=== PATIENT | male | born 1950 ===

== ENCOUNTER 2017-03-12 05:18 | Inpatient (IN) | payer MEDICARE, MEDICAID ==
[2017-03-12] VITALS (15 sets, daily range): BP systolic 111–148; BP diastolic 67–90
[~2017-03-12] VITALS: Ht 172.7 cm; Wt 97.5 kg
[~2017-03-12 05:18] MED LIST: BENAZEPRIL HCL20 MG ORAL; PROTONIX20 MG ORAL
[2017-03-12] MEDS ORDERED: ceFAZolin 1gm/50ml Premix 50 ML IV ONE (07:00)
[2017-03-12] MEDS ORDERED: Surgicel 4in x 8in TOPIC ONE (07:09)
[2017-03-12] MEDS ORDERED: Bupivacaine 0.5% Inj 30 ml vial INJ ONE (07:09)
[2017-03-12] MEDS ORDERED: ProvayBlue 5mg/ml 10ml amp INJ ONE (07:15)
[2017-03-12] MEDS ORDERED: Glycopyrrolate 0.2mg/ml 1ml Vial ONE (07:30)
[2017-03-12] MEDS ORDERED: Lidocaine 1% MPF 10mg/ml 5ml ONE (07:30)
[2017-03-12] MEDS ORDERED: Zemuron 50mg/5ml Inj IV ONE (07:30)
[2017-03-12] MEDS ORDERED: Sterile Water Irrig 1000ml IRRIG ONE (07:30)
[2017-03-12] MEDS ORDERED: Midazolam 2mg/2ml Inj ONE ×2 (07:30)
[2017-03-12] MEDS ORDERED: Ketorolac 30mg Inj ONE (07:30)
[2017-03-12] MEDS ORDERED: NS Irrig 1000ml ONE (07:30)
[2017-03-12] MEDS ORDERED: Succinylcholine 20mg/ml 10ml vial ONE (07:30)
[2017-03-12] MEDS ORDERED: Propofol 200mg/20ml IV ONE (07:30)
[2017-03-12] MEDS ORDERED: fentaNYL 250mcg/5ml ONE (07:30)
[2017-03-12] MEDS ORDERED: Neostigmine 1mg/ml 10ml Inj ONE (07:30)
[2017-03-12] MEDS ORDERED: LR 1000ml ONE (07:30)
--- NOTE | 2017-03-12 07:50 | Pre-Procedure Note/Attestation ---
Pre-Procedure Note/Attestation Complete Prior to Procedure Procedure Narrative: Laparoscopic Radical Prostatectomy Indications for Procedure Pre-Operative Diagnosis: yes Attestation I attest that I discussed the nature of the procedure; its benefits; risks and complications; and alternatives (and the risks and benefits of such alternatives ), prior to the procedure, with the patient (or the patient's legal branch service representative). I attest that, if there was a reasonable possibility of needing a blood transfusion, the patient (or the patient's legal branch service representative) was given the [facility] standardized written summary, pursuant to the Yordan Kavitha Blood Safety Act ([place] Health and Safety Code # 1645, as amended). I attest that I re-evaluated the patient just prior to the surgery and that there has been no change in the patient's H&P, except as documented below: Danilo Owens MD Mar 12, 2017 07:50
[2017-03-12 08:14] LABS: BASOPHILS % (AUTO) 1.4 % (0.0-2.0); EOSINOPHILS % (AUTO) 1.3 % (0.0-3.0); LYMPHOCYTES % (AUTO) 31.4 % (20.0-45.0); MEAN CORPUSCULAR HEMOGLOBIN 24.4 PG (27.0-31.0); MEAN CORPUSCULAR HGB CONC 31.4 G/DL (32.0-36.0); MEAN CORPUSCULAR VOLUME 78 FL (80-99); MEAN PLATELET VOLUME 8.8 FL (6.5-10.1); MONOCYTES % (AUTO) 13.9 % (1.0-10.0); PLATELET COUNT 199 K/UL (150-450); RED BLOOD COUNT 4.78 M/UL (4.70-6.10); WHITE BLOOD COUNT 5.7 K/UL (4.8-10.8)
[2017-03-12] MEDS ORDERED: NS Irrig 1000ml IRRIG ONE (08:30)
[2017-03-12] MEDS ORDERED: LR 1000ml 1,000 ML IVLG SCH (08:54)
--- NOTE | 2017-03-12 08:54 | Anethesia Preoperative Eval ---
Anesthesia Pre-op PMH/ROS General Date of Evaluation: Mar 12, 2017 Time of Evaluation: 07:15 Anesthesiologist: Darwin ASA Score: ASA 2 Mallampati Score Class I : Soft palate, uvula, fauces, pillars visible Class II: Soft palate, uvula, fauces visible Class III: Soft palate, base of uvula visible Class IV: Only hard plate visible Mallampati Classification: Class II Surgeon: Graciela Diagnosis: Prostate CA Surgical Procedure: Laparoscopic prostateectomy Anesthesia History: none Social History: smoking - h/o, alcohol use - occasional Family History: no anesthesia problems Allergies: Coded Allergies: IRON (Verified Allergy, Severe, DIZZINESS, 03/11/17) Medications: see eMAR Past Medical History Cardiovascular: Reports: HTN - mild, Denies: CAD, FL, valve dz, arrhythmia, other Pulmonary: Denies: asthma, COPD, OTILIA, other Gastrointestinal/Genitourinary: Reports: GERD, Denies: CRI, ESRD, other Neurologic/Psychiatric: Denies: dementia, CVA, depression/anxiety, TIA, other Endocrine: Denies: DM, hypothyroidism, steroids, other HEENT: Denies: cataract (L), cataract (R), glaucoma, TABLE MOUNTAIN (L), TABLE MOUNTAIN (R), other Hematology/Immune: Reports: anemia, Denies: DVT, bleeding disorder, other Musculoskeletal/Integumentary: Denies: OA, RA, DJD, DDD, edema, other Other: other - overweight PMH Narrative: as above PSxH Narrative: hemorrhoidectomy Anesthesia Pre-op Phys. Exam Physician Exam Last Vital Signs Date Time Temp Pulse Resp B/P (MAP) Pulse Ox O2 Delivery O2 Flow Rate FiO2 03/12/17 06:55 97.3 82 18 148/78 96 Room Air Constitutional: NAD Neurologic: CN 2-12 intact Cardiovascular: RRR, no M/R/G Respiratory: CTA Gastrointestinal: S/NT/ND Airway Exam Mallampati Score: Class II MO: full Neck: flexible ROM: full Teeth: intact Dentures: no upper, no lower Anesthesia Pre-op A/P Labs Hematology Test 03/12/17 07:47 White Blood Count 5.7 K/UL (4.8-10.8) Red Blood Count 4.78 M/UL (4.70-6.10) Hemoglobin 11.7 G/DL (14.2-18.0) L Hematocrit 37.3 % (42.0-52.0) L Mean Corpuscular Volume 78 FL (80-99) L Mean Corpuscular Hemoglobin 24.4 PG (27.0-31.0) L Mean Corpuscular Hemoglobin Concent 31.4 G/DL (32.0-36.0) L Red Cell Distribution Width 18.0 % (11.6-14.8) H Platelet Count 199 K/UL (150-450) Mean Platelet Volume 8.8 FL (6.5-10.1) Neutrophils (%) (Auto) 52.0 % (45.0-75.0) Lymphocytes (%) (Auto) 31.4 % (20.0-45.0) Monocytes (%) (Auto) 13.9 % (1.0-10.0) H Eosinophils (%) (Auto) 1.3 % (0.0-3.0) Basophils (%) (Auto) 1.4 % (0.0-2.0) Studies Pre-op Studies: EKG - NSR Risk Assessment & Plan Assessment: ASA 2 Plan: GA with ETT Status Change Before Surgery: No Pre-Antibiotics Drug: Ancef 2 gr. Given Within 1 Hr of Incision: Yes Time Given: 08:12 LYN SANDOVAL M.D. Mar 12, 2017 08:54
[2017-03-12] MEDS ORDERED: Meperidine 25mg/0.5ml Inj (FOR RIGORS ONLY) IV PRN (09:00)
[2017-03-12] MEDS ORDERED: Ketorolac 30mg Inj IV PRN ×2 (09:00→11:30)
[2017-03-12] MEDS ORDERED: Hydromorphone 0.5mg/0.5ml inj IVP PRN (09:00)
[2017-03-12] MEDS ORDERED: Midazolam 2mg/2ml Inj IVP PRN (09:00)
[2017-03-12] MEDS ORDERED: DiphenhydrAMINE 50mg/ml Inj IVP PRN ×2 (09:00→11:30)
--- NOTE | 2017-03-12 10:38 | Brief Operative Note ---
Immediate Post Operative Note Operative Note Pre-op Diagnosis: yes Procedure: laparoscopic radical prostatectomy Post-op Diagnosis: same Surgeon: Samy Owens Camp Dining Room Attendant: Aakash Phan Anesthesia: general Specimen: yes Complications: none Condition: stable Fluids: lr 3000 Estimated Blood Loss: minimal Drains: none Implant(s) used?: No Danilo Owens MD Mar 12, 2017 10:38
[2017-03-12] MEDS: PCA HYDROmorphone 1mg/ml 30 ML IV PRN (11:29)
[2017-03-12] MEDS ORDERED: HYDROmorphone 1mg/ml Carpuject IVP PRN (11:30)
[2017-03-12] MEDS ORDERED: Rate Change PCA 1 Each MISC PRN (11:30)
[2017-03-12] MEDS ORDERED: Naloxone 0.4mg/ml Inj IVP PRN (11:30)
[2017-03-12] MEDS ORDERED: LORazepam 1mg tab ORAL PRN (11:30)
--- NOTE | 2017-03-12 11:54 | Immediate Post-Op Evaluation ---
Immediate Post-Op Evalulation Immediate Post-Op Evalulation Procedure: Laparoscopic prostatectomy Date of Evaluation: Mar 12, 2017 Time of Evaluation: 10:45 IV Fluids: 2500 Blood Products: Hespan 500 1 unit of PRBC Estimated Blood Loss: 700 Urinary Output: N/a Blood Pressure Systolic: 131 Blood Pressure Diastolic: 57 Pulse Rate: 78 Respiratory Rate: 22 O2 Sat by Pulse Oximetry: 98 Temperature (Fahrenheit): 97.6 Pain Score (1-10): 2 Nausea: No Vomiting: No Complications none Patient Status: reacts, patent, extubated, none Hydration Status: adequate LYN SANDOVAL M.D. Mar 12, 2017 11:54
[2017-03-12 11:58] LABS: MEAN CORPUSCULAR HEMOGLOBIN 23.7 PG (27.0-31.0); MEAN CORPUSCULAR HGB CONC 30.6 G/DL (32.0-36.0); MEAN CORPUSCULAR VOLUME 78 FL (80-99); MEAN PLATELET VOLUME 8.6 FL (6.5-10.1); PLATELET COUNT 174 K/UL (150-450); RED BLOOD COUNT 4.36 M/UL (4.70-6.10); RED CELL DISTRIBUTION WIDTH 17.9 % (11.6-14.8); WHITE BLOOD COUNT 11.2 K/UL (4.8-10.8)
[2017-03-12 12:16] LABS: ANION GAP 12 (5-15); CARBON DIOXIDE 26 mEQ/L (20-30); CHLORIDE 101 mEQ/L (98-107); GLOMERULAR FILTRATION RATE > 60 mL/min (>60); HEMOLYSIS 2; POTASSIUM 4.7 mEQ/L (3.4-4.9); SODIUM 139 mEQ/L (135-145)
[2017-03-12] MEDS ORDERED: PCA Education Pamphlet MISC ONE (13:00)
--- NOTE | 2017-03-12 13:37 | History and Physical ---
History of Present Illness General Date patient seen: Mar 12, 2017 Present Illness HPI 66 year old with hx of HTN, prostate cancer, admitted for radical prostatectomy. Pt tolerated the procedure well and admitted to med/surg for post op care. Currently pt is awake and comfortable. Allergies: Coded Allergies: IRON (Verified Allergy, Severe, DIZZINESS, 03/11/17) Medication History Scheduled Benazepril Hcl* (Benazepril Hcl*), 20 MG ORAL DAILY, (Reported) Pantoprazole Sodium (Protonix), 20 MG ORAL DAILY, (Reported) Patient History Healthcare decision maker ASHLEY PACE - FRIEND Resuscitation status Full Code Advanced Directive on File Past Medical/Surgical History Past Medical/Surgical History: (1) HTN (hypertension) (2) Prostate cancer Review of Systems All Other Systems: negative except mentioned in HPI Physical Exam General Appearance: WD/WN, no apparent distress Lines, tubes and drains: peripheral HEENT: normocephalic, atraumatic Neck: non-tender, normal alignment Respiratory/Chest: chest wall non-tender, lungs clear Breasts: no masses Cardiovascular/Chest: normal peripheral pulses, normal rate Abdomen: normal bowel sounds, non tender Genitourinary/Rectal: normal genital exam, heme negative stool Extremities: normal range of motion, non-tender Skin Exam: normal pigmentation Neurologic: goodwill representative II-XII grossly normal Last 24 Hour Vital Signs Date Time Temp Pulse Resp B/P (MAP) Pulse Ox O2 Delivery O2 Flow Rate FiO2 03/12/17 13:05 18 03/12/17 12:50 18 03/12/17 12:35 18 03/12/17 12:28 97.3 03/12/17 12:27 97.3 03/12/17 12:20 18 03/12/17 12:15 17 03/12/17 12:05 97.3 78 17 132/82 100 Nasal Cannula 3.0 03/12/17 12:00 15 03/12/17 12:00 73 15 129/83 100 Nasal Cannula 3.0 03/12/17 11:54 78 22 98 03/12/17 11:45 14 03/12/17 11:45 77 16 126/90 100 Nasal Cannula 3.0 03/12/17 11:29 85 20 141/85 100 Nasal Cannula 3.0 03/12/17 11:29 15 03/12/17 11:15 74 20 134/82 100 Simple Mask 10.0 03/12/17 11:00 79 20 122/75 98 Simple Mask 10.0 03/12/17 10:49 78 20 119/67 98 Simple Mask 10.0 03/12/17 10:44 87 20 114/70 98 Simple Mask 10.0 03/12/17 10:39 97.6 87 20 128/68 98 Simple Mask 10.0 03/12/17 06:55 97.3 82 18 148/78 96 Room Air Intake and Output 03/12/17 03/13/17 19:00 07:00 Intake Total 3380 ml Output Total 725 ml Balance 2655 ml Intake IV Total 3100 ml Blood Product 280 ml Output Urine Total 75 ml Estimated Blood Loss 650 ml Laboratory Tests Test 03/12/17 07:47 03/12/17 11:50 White Blood Count 5.7 K/UL (4.8-10.8) 11.2 K/UL (4.8-10.8) #H Red Blood Count 4.78 M/UL (4.70-6.10) 4.36 M/UL (4.70-6.10) L Hemoglobin 11.7 G/DL (14.2-18.0) L 10.3 G/DL (14.2-18.0) L Hematocrit 37.3 % (42.0-52.0) L 33.8 % (42.0-52.0) L Mean Corpuscular Volume 78 FL (80-99) L 78 FL (80-99) L Mean Corpuscular Hemoglobin 24.4 PG (27.0-31.0) L 23.7 PG (27.0-31.0) L Mean Corpuscular Hemoglobin Concent 31.4 G/DL (32.0-36.0) L 30.6 G/DL (32.0-36.0) L Red Cell Distribution Width 18.0 % (11.6-14.8) H 17.9 % (11.6-14.8) H Platelet Count 199 K/UL (150-450) 174 K/UL (150-450) Mean Platelet Volume 8.8 FL (6.5-10.1) 8.6 FL (6.5-10.1) Neutrophils (%) (Auto) 52.0 % (45.0-75.0) % (45.0-75.0) Lymphocytes (%) (Auto) 31.4 % (20.0-45.0) % (20.0-45.0) Monocytes (%) (Auto) 13.9 % (1.0-10.0) H % (1.0-10.0) Eosinophils (%) (Auto) 1.3 % (0.0-3.0) % (0.0-3.0) Basophils (%) (Auto) 1.4 % (0.0-2.0) % (0.0-2.0) Neutrophils % (Manual) Pending Lymphocytes % (Manual) Pending Platelet Estimate Pending Platelet Morphology Pending Sodium Level 139 mEQ/L (135-145) Potassium Level 4.7 mEQ/L (3.4-4.9) Chloride Level 101 mEQ/L (98-107) Carbon Dioxide Level 26 mEQ/L (20-30) Anion Gap 12 (5-15) Blood Urea Nitrogen 14 mg/dL (7-23) Creatinine 1.0 mg/dL (0.7-1.2) Estimat Glomerular Filtration Rate > 60 mL/min (>60) Glucose Level 144 mg/dL (74-106) H Calcium Level 8.0 mg/dL (8.6-10.2) L Height (Feet): 5 Height (Inches): 8.00 Weight (Pounds): 215 Medications Current Medications Medications (Trade) Dose Ordered Sig/Fabi Route PRN Reason Start Time Stop Time Status Last Admin Dose Admin Acetaminophen (Tylenol) 650 mg Q4H PRN ORAL T>100.5 03/12/17 10:45 04/11/17 10:44 Acetaminophen (Tylenol) 650 mg Q6H PRN ORAL Mild Pain (Pain Scale 1-3) 03/14/17 13:00 04/13/17 12:59 Cefazolin Sodium 1 gm/Dextrose 55 ml @ 110 mls/hr Q8H IV 03/12/17 18:30 03/13/17 02:59 Dextrose/ Electrolytes 1,000 ml @ 100 mls/hr Q10H IV 03/12/17 13:30 04/11/17 13:29 Diphenhydramine HCl (Benadryl) 25 mg Q6H PRN IVP Itching/Pruritis 03/12/17 11:30 03/14/17 11:29 Docusate Sodium (Colace) 100 mg TWICE A DAY ORAL 03/12/17 18:00 04/11/17 17:59 Hydromorphone HCl 30 ml @ 0 mls/hr Q24H PRN IV For Pain 03/12/17 11:30 03/14/17 11:29 03/12/17 11:29 Hydromorphone HCl (Dilaudid) 1 mg Q2H PRN IVP Severe Breakthru Pain (>7) 03/12/17 11:30 03/14/17 11:29 Hydromorphone HCl (Dilaudid) 1 mg Q3H PRN IVP SEVERE BREAKTHROUGH PAIN 03/12/17 11:30 03/14/17 11:29 Ketorolac Tromethamine (Toradol 30mg) 15 mg Q6H PRN IV Mild Pain (Pain Scale 1-3) 03/14/17 13:00 03/19/17 12:59 Lorazepam (Ativan) 1 mg Q4H PRN ORAL Muscle Spasm 03/12/17 11:30 03/14/17 11:29 Miscellaneous Medication (ASSISTANT PROFESSOR SURGICAL TECHNOLOGY Rate Change) 1 ea DAILY PRN MISC rate change 03/12/17 11:30 03/14/17 11:29 Miscellaneous Medication (ASSISTANT PROFESSOR SURGICAL TECHNOLOGY shift volume) 1 ea Q12HR@0700,1900 MISC 03/12/17 19:00 03/14/17 18:59 Naloxone HCl (Narcan) 0.1 mg Q1M PRN IVP RR<10/min OR SBP<90 mmHg 03/12/17 11:30 03/14/17 11:29 Ondansetron HCl (Zofran) 4 mg Q6H PRN IVP Nausea & Vomiting 03/12/17 13:00 04/11/17 12:59 Temazepam (Restoril) 7.5 mg HSPRN PRN ORAL Insomnia 03/12/17 10:45 03/19/17 10:44 Assessment/Plan Problem List: (1) Prostate cancer ICD Codes: C61 - Malignant neoplasm of prostate SNOMED: 360793174 (2) S/P prostatectomy ICD Codes: Z90.79 - Acquired absence of other genital organ(s) SNOMED: 64565304, 70507147, 387652525 (3) HTN (hypertension) ICD Codes: I10 - Essential (primary) hypertension SNOMED: 76231853 Assessment/Plan symptomatic treatment pain control iv fluids check electrolytes dvt prophylaxis. GEOR[place] PONCE Mar 12, 2017 13:37
[2017-03-12 13:46] LABS: ANISOCYTOSIS 1+; BAND NEUTROPHILS % (MANUAL) 0 % (0-8); BASOPHILS % (MANUAL) 0 % (0-2); BURR CELLS 1+; EOSINOPHILS % (MANUAL) 1 % (0-3); HYPOCHROMASIA 1+; LYMPHOCYTES % (MANUAL) 7 % (20-45); NEUTROPHILS % (MANUAL) 89 % (45-75); PLATELET ESTIMATE ADEQUATE; PLATELET MORPHOLOGY NORMAL; TOTAL CELLS COUNTED 100
[2017-03-12] MEDS: D5 1/2NS w/KCl 20mEq 1,000 ML IV SCH ×2 (13:51→23:08)
[2017-03-12 14:32] LABS: PSA TOTAL 3.1 ng/mL (< 4.5)
[2017-03-12] MEDS: ceFAZolin sod 1 GM in D5W 55 ML IV SCH ×2 (15:54→23:08)
[2017-03-12] MEDS: Docusate 100mg cap ORAL SCH (17:26)
[2017-03-12] MEDS ORDERED: ceFAZolin sod 1 GM in D5W 55 ML IV SCH (18:30)
[2017-03-12] MEDS: PCA shift volume MISC SCH (19:29)
[2017-03-13] VITALS: BP 139/78
[2017-03-13 04:00] VITALS: BP 143/83
[2017-03-13] MEDS: PCA shift volume MISC SCH ×2 (07:06→19:00)
[2017-03-13 07:15] LABS: BASOPHILS % (AUTO) 0.6 % (0.0-2.0); EOSINOPHILS % (AUTO) 0.5 % (0.0-3.0); LYMPHOCYTES % (AUTO) 20.7 % (20.0-45.0); MEAN CORPUSCULAR HEMOGLOBIN 24.5 PG (27.0-31.0); MEAN CORPUSCULAR HGB CONC 31.8 G/DL (32.0-36.0); MEAN CORPUSCULAR VOLUME 77 FL (80-99); MEAN PLATELET VOLUME 8.2 FL (6.5-10.1); MONOCYTES % (AUTO) 15.1 % (1.0-10.0); NEUTROPHILS % (AUTO) 63.2 % (45.0-75.0); PLATELET COUNT 162 K/UL (150-450); RED BLOOD COUNT 4.07 M/UL (4.70-6.10); RED CELL DISTRIBUTION WIDTH 17.5 % (11.6-14.8); WHITE BLOOD COUNT 7.7 K/UL (4.8-10.8)
[2017-03-13 07:22] LABS: ANION GAP 13 (5-15); CALCIUM 8.3 mg/dL (8.6-10.2); CARBON DIOXIDE 24 mEQ/L (20-30); CHLORIDE 100 mEQ/L (98-107); CREATININE 0.9 mg/dL (0.7-1.2); GLOMERULAR FILTRATION RATE > 60 mL/min (>60); HEMOLYSIS 0; SODIUM 137 mEQ/L (135-145)
[2017-03-13] MEDS: Docusate 100mg cap ORAL SCH ×2 (08:42→17:17)
[2017-03-13 08:49] VITALS: BP 140/86
[2017-03-13] MEDS: D5 1/2NS w/KCl 20mEq 1,000 ML IV SCH ×2 (09:33→20:29)
[2017-03-13 11:37] VITALS: BP 113/69
--- NOTE | 2017-03-13 13:04 | Pulmonology Progress Note ---
Assessment/Plan Problems: (1) Prostate cancer (2) S/P prostatectomy (3) HTN (hypertension) Assessment/Plan tolerating diet not using STEAMBOAT CAPTAIN much continue IV fluids check electrolytes keep larsen for now dct prophylaxis. Subjective ROS Limited/Unobtainable: No Interval Events: clear diet started already Allergies: Coded Allergies: IRON (Verified Allergy, Severe, DIZZINESS, 03/11/17) Objective Last 24 Hour Vital Signs Date Time Temp Pulse Resp B/P (MAP) Pulse Ox O2 Delivery O2 Flow Rate FiO2 03/13/17 12:00 18 03/13/17 11:37 98.5 95 20 113/69 97 Nasal Cannula 2.0 03/13/17 08:49 99.3 92 21 140/86 98 Nasal Cannula 2.0 03/13/17 08:43 140/86 03/13/17 08:00 18 03/13/17 04:31 18 03/13/17 04:00 97.5 95 18 143/83 97 Room Air 03/13/17 01:39 98.0 03/13/17 01:39 98.0 03/13/17 00:30 18 03/13/17 00:00 100.8 101 18 139/78 97 Room Air 03/12/17 22:45 99.1 03/12/17 20:57 99 Nasal Cannula 3.0 32 03/12/17 20:57 Nasal Cannula 3.0 32 03/12/17 20:00 18 03/12/17 20:00 99.7 99 18 140/86 99 Nasal Cannula 2.0 03/12/17 17:30 97.9 82 20 134/88 Nasal Cannula 3.0 03/12/17 16:00 18 03/12/17 16:00 97.8 78 20 134/77 99 Nasal Cannula 03/12/17 13:30 97.7 84 20 111/81 97 Nasal Cannula 3.0 03/12/17 13:05 18 Intake and Output 03/13/17 03/14/17 19:00 07:00 Intake Total 500 ml Output Total 475 ml Balance 25 ml Intake IV Total 500 ml Output Urine Total 475 ml General Appearance: WD/WN HEENT: normocephalic, atraumatic Respiratory/Chest: chest wall non-tender, lungs clear Cardiovascular: normal peripheral pulses, normal rate Abdomen: normal bowel sounds, soft, non tender Genitourinary: normal external genitalia Extremities: no cyanosis Skin: no lesions Neurologic/Psychiatric: thread puller II-XII grossly normal Laboratory Tests 03/12/17 13:45: Carcinoembryonic Antigen 1.9, Prostate Specific Antigen 3.1 03/13/17 06:05: White Blood Count 7.7, Red Blood Count 4.07L, Hemoglobin 10.0L, Hematocrit 31.3L , Mean Corpuscular Volume 77L, Mean Corpuscular Hemoglobin 24.5L, Mean Corpuscular Hemoglobin Concent 31.8L, Red Cell Distribution Width 17.5H, Platelet Count 162, Mean Platelet Volume 8.2, Neutrophils (%) (Auto) 63.2, Lymphocytes (%) (Auto) 20.7, Monocytes (%) (Auto) 15.1H, Eosinophils (%) (Auto) 0.5, Basophils (%) (Auto) 0.6, Sodium Level 137, Potassium Level 4.0, Chloride Level 100, Carbon Dioxide Level 24, Anion Gap 13, Blood Urea Nitrogen 13, Creatinine 0.9, Estimat Glomerular Filtration Rate > 60, Glucose Level 115H, Calcium Level 8.3L Current Medications Medications (Trade) Dose Ordered Sig/Fabi Route PRN Reason Start Time Stop Time Status Last Admin Dose Admin Acetaminophen (Tylenol) 650 mg Q4H PRN ORAL T>100.5 03/12/17 10:45 04/11/17 10:44 03/13/17 00:27 Acetaminophen (Tylenol) 650 mg Q6H PRN ORAL Mild Pain (Pain Scale 1-3) 03/14/17 13:00 04/13/17 12:59 Benazepril HCl (Lotensin) 20 mg DAILY ORAL 03/13/17 09:00 04/12/17 08:59 03/13/17 08:43 Dextrose/ Electrolytes 1,000 ml @ 100 mls/hr Q10H IV 03/12/17 13:30 04/11/17 13:29 03/13/17 09:33 Diphenhydramine HCl (Benadryl) 25 mg Q6H PRN IVP Itching/Pruritis 03/12/17 11:30 03/14/17 11:29 Docusate Sodium (Colace) 100 mg TWICE A DAY ORAL 03/12/17 18:00 04/11/17 17:59 03/13/17 08:42 Hydromorphone HCl 30 ml @ 0 mls/hr Q24H PRN IV For Pain 03/12/17 11:30 03/14/17 11:29 03/12/17 11:29 Hydromorphone HCl (Dilaudid) 1 mg Q2H PRN IVP Severe Breakthru Pain (>7) 03/12/17 11:30 03/14/17 11:29 Hydromorphone HCl (Dilaudid) 1 mg Q3H PRN IVP SEVERE BREAKTHROUGH PAIN 03/12/17 11:30 03/14/17 11:29 Ketorolac Tromethamine (Toradol 30mg) 15 mg Q6H PRN IV Mild Pain (Pain Scale 1-3) 03/14/17 13:00 03/19/17 12:59 Lorazepam (Ativan) 1 mg Q4H PRN ORAL Muscle Spasm 03/12/17 11:30 03/14/17 11:29 Miscellaneous Medication (STEAMBOAT CAPTAIN Rate Change) 1 ea DAILY PRN MISC rate change 03/12/17 11:30 03/14/17 11:29 Miscellaneous Medication (STEAMBOAT CAPTAIN shift volume) 1 ea Q12HR@0700,1900 MISC 03/12/17 19:00 03/14/17 18:59 03/13/17 07:06 Naloxone HCl (Narcan) 0.1 mg Q1M PRN IVP RR<10/min OR SBP<90 mmHg 03/12/17 11:30 03/14/17 11:29 Ondansetron HCl (Zofran) 4 mg Q6H PRN IVP Nausea & Vomiting 03/12/17 13:00 04/11/17 12:59 Temazepam (Restoril) 7.5 mg HSPRN PRN ORAL Insomnia 03/12/17 10:45 03/19/17 10:44 GEORGIA PONCE Mar 13, 2017 13:04
[2017-03-13] MEDS: PCA HYDROmorphone 1mg/ml 30 ML IV PRN (13:30)
[2017-03-13 16:33] VITALS: BP 122/70
[2017-03-13 20:25] VITALS: BP 128/80
[2017-03-14 00:26] VITALS: BP 119/83
[2017-03-14] MEDS: D5 1/2NS w/KCl 20mEq 1,000 ML IV SCH (04:38)
[2017-03-14 04:42] VITALS: BP 142/87
[2017-03-14] MEDS: PCA shift volume MISC SCH (07:00)
[2017-03-14 07:06] LABS: ALANINE AMINOTRANSFERASE 39 U/L (3-41); ALBUMIN/GLOBULIN RATIO 1.1 (1.0-2.7); ANION GAP 9 (5-15); ASPARTATE AMINO TRANSFERASE 45 U/L (5-40); CALCIUM 8.4 mg/dL (8.6-10.2); CARBON DIOXIDE 28 mEQ/L (20-30); CHLORIDE 99 mEQ/L (98-107); CREATININE 0.9 mg/dL (0.7-1.2); GLOMERULAR FILTRATION RATE > 60 mL/min (>60); HEMOLYSIS 1; PHOSPHORUS 3.4 mg/dL (2.5-4.8); POTASSIUM 4.1 mEQ/L (3.4-4.9); SODIUM 136 mEQ/L (135-145); TOTAL PROTEIN 6.4 g/dL (6.6-8.7)
[2017-03-14 07:15] LABS: EOSINOPHILS % (AUTO) 0.6 % (0.0-3.0); LYMPHOCYTES % (AUTO) 19.4 % (20.0-45.0); MEAN CORPUSCULAR HEMOGLOBIN 24.9 PG (27.0-31.0); MEAN CORPUSCULAR VOLUME 78 FL (80-99); MEAN PLATELET VOLUME 8.9 FL (6.5-10.1); MONOCYTES % (AUTO) 12.5 % (1.0-10.0); NEUTROPHILS % (AUTO) 66.4 % (45.0-75.0); PLATELET COUNT 155 K/UL (150-450); RED BLOOD COUNT 3.76 M/UL (4.70-6.10); RED CELL DISTRIBUTION WIDTH 16.9 % (11.6-14.8); WHITE BLOOD COUNT 9.6 K/UL (4.8-10.8)
[2017-03-14 08:00] VITALS: BP 133/84
[2017-03-14] MEDS: Docusate 100mg cap ORAL SCH (08:41)
[2017-03-14 12:00] VITALS: BP 111/71
[2017-03-14] MEDS ORDERED: Ketorolac 30mg Inj IV PRN (13:00)
--- NOTE | 2017-03-14 13:26 | Pulmonology Progress Note ---
Assessment/Plan Problems: (1) Prostate cancer (2) S/P prostatectomy (3) HTN (hypertension) Assessment/Plan tolerating diet larsen was d/leandro dc home with oral abx Subjective ROS Limited/Unobtainable: No Constitutional: Reports: no symptoms HEENT: Repors: no symptoms Respiratory: Reports: no symptoms Cardiovascular: Reports: no symptoms Allergies: Coded Allergies: IRON (Verified Allergy, Severe, DIZZINESS, 03/11/17) Objective Last 24 Hour Vital Signs Date Time Temp Pulse Resp B/P (MAP) Pulse Ox O2 Delivery O2 Flow Rate FiO2 03/14/17 12:00 18 03/14/17 12:00 98.0 96 19 111/71 96 Room Air 03/14/17 08:41 133/84 03/14/17 08:00 18 03/14/17 08:00 98.6 113 17 133/84 98 Room Air 03/14/17 04:42 99.3 100 18 142/87 93 Room Air 03/14/17 04:00 18 03/14/17 00:26 98.0 112 19 119/83 93 Room Air 03/14/17 00:00 18 03/13/17 20:25 98.7 117 20 128/80 91 Room Air 03/13/17 20:00 18 03/13/17 16:33 98.1 99 20 122/70 100 Nasal Cannula 2.0 03/13/17 16:00 20 03/13/17 14:02 98.5 03/13/17 13:30 18 03/13/17 13:30 18 Intake and Output 03/14/17 03/15/17 19:00 07:00 Intake Total 750 ml Output Total 450 ml Balance 300 ml Intake Oral 250 ml IV Total 500 ml Output Urine Total 450 ml General Appearance: WD/WN, no acute distress HEENT: atraumatic Respiratory/Chest: chest wall non-tender, normal breath sounds Cardiovascular: normal peripheral pulses, regular rhythm Abdomen: normal bowel sounds, soft, non tender Microbiology Date/Time Source Procedure Growth Status 03/12/17 07:07 Nasal Nares MRSA Culture - Final NO METHICILLIN RESISTANT STAPH AUREUS... Complete Laboratory Tests 03/14/17 05:10: White Blood Count 9.6, Red Blood Count 3.76L, Hemoglobin 9.3L, Hematocrit 29.2L , Mean Corpuscular Volume 78L, Mean Corpuscular Hemoglobin 24.9L, Mean Corpuscular Hemoglobin Concent 32.0, Red Cell Distribution Width 16.9H, Platelet Count 155, Mean Platelet Volume 8.9, Neutrophils (%) (Auto) 66.4, Lymphocytes (%) (Auto) 19.4L, Monocytes (%) (Auto) 12.5H, Eosinophils (%) (Auto ) 0.6, Basophils (%) (Auto) 1.0, Sodium Level 136, Potassium Level 4.1, Chloride Level 99, Carbon Dioxide Level 28, Anion Gap 9, Blood Urea Nitrogen 8, Creatinine 0.9, Estimat Glomerular Filtration Rate > 60, Glucose Level 113H, Calcium Level 8.4L, Phosphorus Level 3.4, Magnesium Level 2.0, Total Bilirubin 0.5, Aspartate Amino Transf (AST/SGOT) 45H, Alanine Aminotransferase (ALT/SGPT) 39, Alkaline Phosphatase 73, Total Protein 6.4L, Albumin 3.4L, Globulin 3.0, Albumin/Globulin Ratio 1.1 Current Medications Medications (Trade) Dose Ordered Sig/Fabi Route PRN Reason Start Time Stop Time Status Last Admin Dose Admin Acetaminophen (Tylenol) 650 mg Q4H PRN ORAL T>100.5 03/12/17 10:45 04/11/17 10:44 03/13/17 00:27 Acetaminophen (Tylenol) 650 mg Q6H PRN ORAL Mild Pain (Pain Scale 1-3) 03/14/17 13:00 04/13/17 12:59 Benazepril HCl (Lotensin) 20 mg DAILY ORAL 03/13/17 09:00 04/12/17 08:59 03/14/17 08:41 Dextrose/ Electrolytes 1,000 ml @ 100 mls/hr Q10H IV 03/12/17 13:30 04/11/17 13:29 03/14/17 04:38 Docusate Sodium (Colace) 100 mg TWICE A DAY ORAL 03/12/17 18:00 04/11/17 17:59 03/14/17 08:41 Ketorolac Tromethamine (Toradol 30mg) 15 mg Q6H PRN IV Mild Pain (Pain Scale 1-3) 03/14/17 13:00 03/19/17 12:59 Miscellaneous Medication (FUR BLENDER shift volume) 1 ea Q12HR@0700,1900 MISC 03/12/17 19:00 03/14/17 18:59 03/14/17 07:00 Ondansetron HCl (Zofran) 4 mg Q6H PRN IVP Nausea & Vomiting 03/12/17 13:00 04/11/17 12:59 Temazepam (Restoril) 7.5 mg HSPRN PRN ORAL Insomnia 03/12/17 10:45 03/19/17 10:44 GEOR[place] PONCE Mar 14, 2017 13:26
[2017-03-14] MEDS ORDERED: LEVOFLOXACIN250 MG ORAL (13:30)
[2017-03-14] MEDS ORDERED: COLACE100 MG ORAL (13:31)
[2017-03-14] MEDS ORDERED: ACETAMINOPHEN-1 EAC1 ORAL (13:31)
[2017-03-14] MEDS ORDERED: Tubing IV Secondary IV ONE (14:59)
--- NOTE | 2017-03-14 17:22 | Physician Query ---
PLEASE COMPLETE DOCUMENT BEFORE SIGNING Dear Dr. Yves Taylor Date: Ship Cleaner/CDS Name: Jackievonnie SabaLEXX matthew Ship Cleaner/CDS Phone No.: Exercise your independent professional judgment when responding to the query. Questions asked do not imply a particular answer is desired or expected. We greatly appreciate your clarification on this issue. CLINICAL DOCUMENTATION STATES: 66 year old with hx of HTN, prostate cancer, admitted for radical prostatectomy. Pt tolerated the procedure well and admitted to med/surg for post op care. CLINICAL FINDINGS SHOW: Hgb= 11.7,10.3,10.0,9.3 Immediate Post-Op Evalulation Procedure: Laparoscopic prostatectomy Date of Evaluation: Mar 12, 2017 Time of Evaluation: 10:45 IV Fluids: 2500 Blood Products: Hespan 500 1 unit of PRBC Estimated Blood Loss: 700 Please respond to the following question: Is there a diagnosis specific to these symptoms or values? If so please state below. PHYSICIAN RESPONSE: Condition Present on Admission: [] Yes [] No []Clinically Undeterminable Please also document in your Progress Notes and/or Discharge Summary and indicate if the condition was present on admission. Yves Taylor MD Date/Time [facility]
[2017-03-15 10:09] VITALS: BP 135/56
--- NOTE | 2017-03-15 10:09 | 48 Hour Post Anesthesia Eval ---
Post Anesthesia Evaluation Procedure: Laparoscopic prostatectomy Date of Evaluation: Mar 13, 2017 Time of Evaluation: 11:18 Blood Pressure Systolic: 135 0: 56 Pulse Rate: 76 Respiratory Rate: 22 Temperature (Fahrenheit): 97.6 O2 Sat by Pulse Oximetry: 98 Airway: patent Nausea: No Vomiting: No Pain Intensity: 3 Hydration Status: adequate Cardiopulmonary Status: stable Mental Status/LOC: patient returned to baseline Follow-up Care/Observations: n/a Post-Anesthesia Complications: none Follow-up care needed: N/A LYN SANDOVAL M.D. Mar 15, 2017 10:09
--- NOTE | 2017-03-17 10:54 | Discharge Summary ---
Discharge Summary Hospital Course Date of Admission Mar 12, 2017 at 06:18 Date of Discharge Mar 14, 2017 at 15:00 Admitting Diagnosis RICARDA Mei is a 66 year old male who was admitted on Mar 12, 2017 at 06:18 for Prostate Cancer Hospital Course dc summary #[id number] Discharge Medications Continued Medications: Acetaminophen With Codeine (T#3) (Tylenol #3 Tab*) Y Tab 1 TAB ORAL Q6HR PRN for For Pain, TAB Docusate Sodium* (Colace*) 100 Mg Capsule 100 MG ORAL TWICE A DAY for 30 Days, CAP Levofloxacin (Levofloxacin*) 250 Mg Tablet 200 MG ORAL DAILY for 7 Days, TAB Discharge Condition Upon Discharge: stable Discharge Disposition Patient was discharged to Home (01) Discharge Diagnoses: Discharge Instructions Discharge Instructions Special Instructions I have been assigned to complete a D/C Summary on this account. I was not involved in the patient management Valeria Granda NP (Vanchtein) Mar 17, 2017 10:54
--- NOTE | 2017-03-18 06:15 | Discharge Summary 2 SIG ---
DATE OF ADMISSION: 03/12/2017 DATE OF DISCHARGE: 03/14/2017 Reason For Admission: 66-year-old male with history of prostate cancer, admitted for elective laparoscopic radical prostatectomy which was subsequently done on 03/12/2017. The patient with past medical history of prostate cancer and hypertension. The patient was admitted for further postoperative management. ADMITTING DIAGNOSES: 1. Prostate cancer 2. status post laparoscopic radical prostatectomy. 3. Hypertension. Hospital Course: The patient was admitted. The patient was on the IV fluids. Pain management was addressed, and pain was controlled. Surgery closely followed The patient was on DVT prophylaxis. Hemoglobin and hematocrit were closely monitored. Upon admission, hemoglobin -11.7 and hematocrit -37.3. On 03/14/2017, hemoglobin -9.3 and hematocrit -29.2. Anemia postoperatively possibly due to some blood loss, possibly secondary to initial dehydration and hemoconcentration. The patient undergone transfusion of one unit of packed red blood cell. Cancer tumor, tumor markers were within normal limits: CEA and PSA. Bowel regimen instituted. Leukocytosis noted on the day of surgery , resolved. No fever. Blood pressure was stable. No need for antihypertensive medication at this time. Closely monitor blood pressure as an outpatient. The patient was stable for discharge. Prescription provided for empiric antibiotics, stool softener and analgesic. DISCHARGE DIAGNOSES: 1. Prostate cancer. 2. Status post laparoscopic radical prostatectomy. 3. Hypertension. 4. Anemia, status post blood transfusion. DISCHARGE MEDICATIONS: See medication reconciliation list. Discharge Instructions: Follow up with the surgeon as specified. Follow up with the primary medical doctor. I have been assigned to dictate discharge summary on this account and I was not involved in the patient's management. Valeria Elizabethmarcel N.PNirmala DR: CONTRERAS JOB#: [id number] CC: SHIVA
--- NOTE | 2017-03-18 07:15 | Operative Note - Dictated ---
DATE OF OPERATION: 03/12/2017 PREOPERATIVE DIAGNOSIS: Prostate cancer. POSTOPERATIVE DIAGNOSIS: Prostate cancer. OPERATION: Laparoscopic radical prostatectomy. SURGEON: Danilo Owens M.D. ANESTHESIA: General. FINDINGS: Enlarged prostate. INDICATIONS FOR SURGERY: The patient was diagnosed with prostate cancer. Treatment options were explained to him at great length including all potential complications. He signed a consent. DESCRIPTION OF PROCEDURE: He was brought to the operating room, placed in supine position, and prepped and draped in standard fashion under general anesthesia. Veress needle was placed and 5 trocars, three 5s and two 12s were placed in the standard position. Dissection was started behind the bladder mobilizing seminal vesicles, which was severed and vas deferens transected. The dissection was then carried anteriorly bladder from the pubis and endopelvic fascia was opened with electric scissors. An Endo-SINGH was used for dorsal venous complex . Bladder neck sparing technique was used to separate the prostate from the bladder. There were margins of prostate at the bladder neck that was sent for pathologic examination and frozen section showed no evidence of tumor. After removal of the prostate, the neurovascular bundles were preserved. Bladder was reapproximated with urethra with running 2-0 Monocryl suture, 20-[place] Garcia catheter and the bladder was then irrigated. No evidence of leaks. Estimated blood loss was approximately 300 mL. Specimen was sent for pathologic examination. Sponge count and instrument count was correct. The patient tolerated the procedure well, transferred to recovery room in stable condition. No evidence of complications. Danilo Owens M.D. DR: DEAN JOB#: [id number] CC: [id number]
== END 2017-03-14 15:00 | disposition home or self-care (01) | DRG 707 ==
LOC: UNDOADMIN 05:18 → SDSOVERFLO 05:18 → 3E 12:29
PROC: 30233N1 Transfusion of Nonautologous Red Blood Cells into Peripheral Vein, Percutaneous Approach (ICD-10-PCS; principal; 2017-03-12 07:30)
PROC: 0VT04ZZ Resection of Prostate, Percutaneous Endoscopic Approach (ICD-10-PCS; 2017-03-13)
DX: C61 Malignant neoplasm of prostate (principal); D62 Acute posthemorrhagic anemia; I10 Essential (primary) hypertension; Z88.8 Allergy status to other drugs, medicaments and biological substances; D50.9 Iron deficiency anemia, unspecified; E78.1 Pure hyperglyceridemia; E86.0 Dehydration
CPT/HCPCS: 36415; 80048; 80053; 82378; 83735; 84100; 84153; 85007; 85025; 86850; 86900; 86901; 86920; 87081; 94003; 94150; 94760; J2250; J2710